=== PATIENT | male | born 1995 | race Caucasian/White ===

== ENCOUNTER 2016-08-18 23:59 | Emergency (ER) | payer OTHER ==
[~2016-08-18] VITALS: Ht 193 cm; Wt 112.3 kg
[2016-08-19 00:01] VITALS: TEMP 36.7; Ht 193 cm; Wt 112.3 kg
--- NOTE | 2016-08-19 00:16 | EMERGENCY ROOM VISIT NOTE ---
History Report prepared by Scribe: Tessa Merida Under the Supervision of: Dr. Ariel Farnsworth D.O. First contact with patient: 00:07 Chief Complaint: LACERATION/CUT (SUT/DERMABOND) Stated Complaint: CUT INDEX FINGER Nursing Triage Summary: Patient states "I cut my right pointer finger. I was cutting a steak and missed. It happened about 1 hour ago." History of Present Illness The patient is a 21 year old male who presents to the Emergency Room with complaints of a laceration to his right pointer finger. He reports the incident occurred approximately 2 hours [employer] as he was cutting a steak, and "missed". He rates his pain as a 4/10 in severity. He believes his tetanus shot is up to date. He denies any other injuries or cuts. Source of History: patient Onset: 2 hours [employer] Position: finger(s) (right pointer finger) Symptom Intensity: 4/10 Timing: resolved Review of Systems See HPI for pertinent positives & negatives. A total of 10 systems reviewed and were otherwise negative. Past Medical & Surgical Surgical Problems: (1) History of wisdom tooth extraction Social History Smoking Status: Never Smoker Alcohol Use: occasionally Drug Use: none Marital Status: single Housing Status: lives with roommate Occupation Status: [employer] Current/Historical Medications No Active Prescriptions or Reported Meds Allergies Coded Allergies: No Known Allergies (Unverified , 08/19/16) Physical Exam Vital Signs Date Time Temp Pulse Resp B/P (MAP) Pulse Ox O2 Delivery O2 Flow Rate FiO2 08/19/16 01:06 78 16 132/81 97 08/19/16 00:01 36.7 95 18 130/76 94 Room Air Physical Exam GENERAL: Patient is awake, alert, mildly anxious but comfortable. EYES: The conjunctivae are clear. The pupils are round and reactive. EARS, NOSE, MOUTH AND THROAT: The nose is without any evidence of any deformity. Mucous membranes are moist tongue is midline RESPIRATORY: Normal respiratory effort is noted there is no evidence of wheezing rhonchi or rales CARDIOVASCULAR: Regular rate and rhythm noted there no murmurs rubs or gallops normal S1 normal S2 GASTROINTESTINAL: The abdomen is soft. Bowel sounds are present in all quadrants. Abdomen is nontender MUSCULOSKELETAL/EXTREMITIES: There is no evidence of gross deformity full range of motion is noted in the hips and shoulders SKIN: Avulsion laceration to the lateral aspect of the right index finger. Slight oozing is noted, no pulsatile bleeding noted, wound edges appear to be difficult to approximate because of avulsion. There is no obvious evidence of any rash. There are no petechiae, pallor or cyanosis noted. NEUROLOGIC: Patient is awake alert and oriented x3 strength is symmetric patellar reflexes are 2+ bilaterally Medical Decision & Procedures Medications Administered Medications (Trade) Dose Ordered Sig/Patrice Route Start Time Stop Time Status Last Admin Dose Admin Gelatin (Surgifoam Sponge 12-7MM (SMALL)) 1 ea STK-MED ONCE .ROUTE 08/19/16 00:17 08/19/16 00:18 DC 08/19/16 00:17 1 EA ED Course 0011: The patient was evaluated in room C4. A complete history and physical examination were performed. 0107: I reevaluated the patient. He is feeling better. I discussed his results and discharge instructions and he verbalized complete understanding and agreement. Medical Decision Nursing notes reviewed. The patient is a 21-year-old male who presented to the emergency department for an avulsion to his right index finger that he sustained by accident with a knife. The patient's laceration appeared to be more of an avulsion. There is no area that could be approximated using sutures. There was a pressure dressing applied using Surgicel. This appeared to achieve good hemostasis. I discussed this laceration with the patient and encouraged him to keep this pressure dressing on for at least one to 2 days. He was also encouraged to the area clean and dry. He was also encouraged to follow-up with [facility] this week for reevaluation or return to the emergency department immediately if symptoms change worsen or the need arises. Impression Primary Impression: Laceration of right index finger Additional Impression: Avulsion of finger Scribe Attestation The scribe's documentation has been prepared under my direction and personally reviewed by me in its entirety. I confirm that the note above accurately reflects all work, treatment, procedures, and medical decision making performed by me. Departure Information Dispostion Home / Self-Care Prescriptions No Active Prescriptions or Reported Meds Referrals No Doctor, Assigned (PCP) Patient Instructions ED Laceration All, [facility] Additional Instructions Continue to keep pressure to the right index finger as instructed. Follow-up with [facility] next week for reevaluation. Return to the emergency department immediately if symptoms worsen or if need arises. Problem Qualifiers Primary Impression: Laceration of right index finger Encounter type: initial encounter Damage to nail status: unspecified Foreign body presence: without foreign body Qualified Codes: S61.210A - Laceration without foreign body of right index finger without damage to nail, initial encounter Additional Impression: Avulsion of finger Encounter type: initial encounter Qualified Codes: S61.209A - Unspecified open wound of unspecified finger without damage to nail, initial encounter
[2016-08-19] MEDS ORDERED: GELATIN SPONGE 12-7MM ONE (00:17)
[2016-08-19 01:06] VITALS: BP 132/81; PULSE 78; O2SAT 97
== END 2016-08-19 01:07 | disposition home or self-care (01) ==
LOC: C.EDB 08-19 → C.EDC 08-19 01:07
DX: S61.210A Laceration without foreign body of right index finger without damage to nail, initial encounter (principal); W26.0XXA Contact with knife, initial encounter